=== PATIENT | male | born 1955 | race Caucasian/White ===

== ENCOUNTER 2021-06-11 00:50 | Emergency (ER) | payer OTHER ==
[~2021-06-11] VITALS: Ht 200.7 cm; Wt 138.3 kg
[2021-06-11] MEDS ORDERED: TIROSINT125 MCG PO (01:05)
[2021-06-11] MEDS ORDERED: NORCO7.5 PO (01:52)
[2021-06-11 02:26] VITALS: BP 149/82
== END 2021-06-11 02:29 | disposition home or self-care (01) ==
LOC: ER 00:50
DX: M25.561 Pain in right knee (principal); E03.9 Hypothyroidism, unspecified; Z79.899 Other long term (current) drug therapy; Z88.0 Allergy status to penicillin; Z88.2 Allergy status to sulfonamides